=== PATIENT | male | born 1990 | race Caucasian/White ===

== ENCOUNTER 2016-11-17 22:01 | Emergency (ER) | payer MEDICAID ==
[~2016-11-17] VITALS: Ht 175.3 cm; Wt 80.7 kg
[~2016-11-17 22:01] MED LIST: FAMO-90 PO; ONDA4ODT1 PO; [UNRECOGNIZED DRUG - OTHER] PO
[2016-11-17 22:27] VITALS: BP 123/83
--- NOTE | 2016-11-18 02:40 | NUR ---
PATIENT LEFT WITHOUT BEING SEEN BY DR. STACY. NO FURTHER CARE PROVIDED FOR PATIENT.
== END 2016-11-18 02:40 | disposition left against medical advice (07) ==
LOC: MED 22:01
DX: R10.9 Unspecified abdominal pain (principal); R19.7 Diarrhea, unspecified; R11.10 Vomiting, unspecified; Z53.21 Procedure and treatment not carried out due to patient leaving prior to being seen by health care provider

== ENCOUNTER 2023-09-02 12:29 | Emergency (ER) | payer MEDICAID ==
[~2023-09-02] VITALS: Ht 175.3 cm; Wt 81.6 kg
[~2023-09-02 12:29] MED LIST changes: +ONDA-188 PO; -ONDA4ODT1 PO; +[UNRECOGNIZED DRUG - CODE] PO; -[UNRECOGNIZED DRUG - OTHER] PO
[2023-09-02 12:48] VITALS: BP 122/75; PULSE 75; RESP 16; TEMP 98.2; O2SAT 98
[2023-09-02] MEDS ORDERED: KETOROLAC 30 MG/ML VIAL IVP ONE (13:05)
[2023-09-02] MEDS ORDERED: ONDANSETRON 4 MG/2 ML VIAL IVP ONE (13:05)
[2023-09-02] MEDS ORDERED: NACL 0.9% 1,000 ML IV SCH (13:05)
[2023-09-02 13:25] LABS: BASOPHILS % (AUTO) 0.4 % (0.0-2.0); EOSINOPHILS # (AUTO) 0.2 K/uL (0-0.4); EOSINOPHILS % (AUTO) 1.5 % (0.0-4.0); HEMATOCRIT 43.6 % (36-52); HEMOGLOBIN 15.3 g/dL (12.0-18.0); LYMPHOCYTES # (AUTO) 1.9 K/uL (2.0-11.5); LYMPHOCYTES % (AUTO) 18.9 % (20.5-51.1); MEAN CORPUSCULAR HEMOGLOBIN 31 pg (27-31); MEAN CORPUSCULAR HGB CONC 35 g/dL (33-37); MEAN CORPUSCULAR VOLUME 89.2 fL (80-94); MONOCYTES # (AUTO) 1.2 K/uL (0.8-1.0); MONOCYTES % (AUTO) 11.5 % (1.7-9.3); NEUTROPHILS # (AUTO) 6.9 K/uL (1.8-7.7); NEUTROPHILS % (AUTO) 67.7 % (42.2-75.2); PLATELET COUNT (AUTO) 282 K/uL (140-450); RED BLOOD CELL COUNT(AUTO) 4.89 MIL/uL (4.20-6.10); RED CELL DISTRIBUTION WIDTH 13.5 % (11.6-13.7); WHITE BLOOD COUNT (AUTO) 10.2 K/uL (4.8-10.8)
[2023-09-02 13:25] LABS: APPEARANCE,URINE CLEAR (CLEAR); BILIRUBIN,URINE NEGATIVE (NEGATIVE); BLOOD, URINE NEGATIVE (NEGATIVE); COLOR,URINE YELLOW (YELLOW); LEUKOCYTE ESTERASE ,URINE NEGATIVE (NEGATIVE); NITRITE, URINE NEGATIVE (NEGATIVE); PROTEIN,URINE NEGATIVE (NEGATIVE); UGLUCOSE NEGATIVE (NEGATIVE); UROBILINOGEN,URINE 0.2 EU/dL (0.2 - 1)
[2023-09-02 13:32] LABS: ANION GAP 10.3 (8-16); CALCIUM 8.8 mg/dL (8.5-10.1); CARBON DIOXIDE 26.9 mmol/L (21-32); CREATININE 0.9 mg/dL (0.6-1.3); POTASSIUM 4.2 mmol/L (3.5-5.1)
[2023-09-02 13:39] LABS: ALBUMIN 3.6 g/dL (3.4-5.0); TOTAL BILIRUBIN 0.2 mg/dL (0.0-1.0); TOTAL PROTEIN, SERUM 7.8 g/dL (6.4-8.2)
[2023-09-02] MEDS ORDERED: SULF-58 PO (14:23)
[2023-09-02] MEDS ORDERED: IMO2 PO (14:23)
[2023-09-02 15:16] VITALS: BP 131/81; PULSE 68; RESP 14; TEMP 97.5; O2SAT 97
== END 2023-09-02 15:18 | disposition home or self-care (01) ==
LOC: MED 12:29
DX: R10.9 Unspecified abdominal pain (principal); R19.7 Diarrhea, unspecified; R53.1 Weakness; Z79.899 Other long term (current) drug therapy
CPT/HCPCS: 36415; 74176; 80048; 80076; 81003; 82150; 83690; 84703; 85025; 87045; 87177; 87427; 89055; 96361; 96374; 96375; 99285; J1885; J2405; J7030

== ENCOUNTER 2023-09-03 13:38 | Emergency (ER) | payer MEDICAID ==
[~2023-09-03] VITALS: Ht 175.3 cm; Wt 86.2 kg
[~2023-09-03 13:38] MED LIST changes: +IMO2 PO; +SULF-58 PO
[2023-09-03 14:03] VITALS: BP 97/75; PULSE 75; RESP 16; TEMP 98.7; O2SAT 98
== END 2023-09-03 16:27 | disposition left against medical advice (07) ==
LOC: MED 13:38
DX: R19.7 Diarrhea, unspecified (principal); R11.0 Nausea; Z53.21 Procedure and treatment not carried out due to patient leaving prior to being seen by health care provider
CPT/HCPCS: 99281

== ENCOUNTER 2024-01-10 13:45 | Emergency (ER) | payer MEDICAID ==
[~2024-01-10] VITALS: Ht 175.3 cm; Wt 88.9 kg
[2024-01-10 14:08] VITALS: BP 121/76; PULSE 83; RESP 20; TEMP 98.3; O2SAT 99
[2024-01-10] MEDS ORDERED: DOXY-690 PO (14:58)
[2024-01-10] MEDS ORDERED: LIDO4CRE18 TP (14:58)
[2024-01-10] MEDS ORDERED: cefTRIAXone 500 MG VIAL ONE (15:00)
[2024-01-10] MEDS ORDERED: LIDOCAINE MPF 1% 5 ML ONE (15:00)
[2024-01-10] MEDS: cefTRIAXone 500 MG in LIDOCAINE MPF 1% 1 ML IM ONE (15:09)
[2024-01-10] MEDS: KETOROLAC 30 MG/ML VIAL IM ONE (15:10)
== END 2024-01-10 15:30 | disposition home or self-care (01) ==
LOC: MED 13:45
DX: A57 Chancroid (principal); Z79.899 Other long term (current) drug therapy
CPT/HCPCS: 36415; 86592; 87491; 87529; 96372; 99284; J0696; J1885; J2001

== ENCOUNTER 2024-01-13 18:24 | Emergency (ER) | payer MEDICAID ==
[~2024-01-13] VITALS: Ht 175.3 cm; Wt 86.2 kg
[~2024-01-13 18:24] MED LIST changes: +DOXY-690 PO; +LIDO4CRE18 TP
[2024-01-13 18:40] VITALS: BP 124/69; PULSE 94; RESP 16; TEMP 97.2; O2SAT 98
[2024-01-13] MEDS: PENICILLIN G BENZATHINE L-A 1.2 MU/2 ML SYR IM ONE (18:57)
== END 2024-01-13 19:05 | disposition home or self-care (01) ==
LOC: MED 18:24
DX: A53.9 Syphilis, unspecified (principal); Z79.899 Other long term (current) drug therapy
CPT/HCPCS: 96372; 99283; J0561